=== PATIENT | female | born 1995 | race African-American/Black ===

== ENCOUNTER 2018-09-03 18:26 | Emergency (ER) | payer SELFPAY ==
[~2018-09-03] VITALS: Ht 162.6 cm; Wt 73.5 kg
[2018-09-03 18:50] VITALS: BP 108/58
--- NOTE | 2018-09-03 20:02 | NUR ---
PT RETURN FROM RAD TO LOBBY
--- NOTE | 2018-09-03 20:08 | NUR ---
PT AMBULATED TO BED 10.
--- NOTE | 2018-09-03 20:09 | NUR ---
23 Y/O FEMALE PRESNTS TO ED WITH C/O LEFT SIDE CHEST PAIN WITH COUGH X2 WEEKS. PT STATES PAIN EXACERBATED WITH COUGHING. NON-PRODUCTIVE COUGH. 7/10 CP. NO ALOC. NASUEA WITHOUT VOMITING. BILAT LUNGS CLEAR THROUGHOUT. 02SAT 100%. NO SOB/DYSPNEA. VSS. ER MD AWARE. CONTINUE TO MONITOR.
--- NOTE | 2018-09-03 20:21 | NUR ---
DR COCHRAN AT BEDSIDE.
--- NOTE | 2018-09-03 20:33 | NUR ---
PT PROVIDING URINE AT THIS TIME.
[2018-09-03 20:58] VITALS: BP 111/61
--- NOTE | 2018-09-03 20:58 | NUR ---
DISCHARGE PAPERS GIVEN TO PT. RX OF PREDNISONE AND CODEINE/PHENYLEPHRINE/PROMETHAZINE GIVEN. SIDE EFFECTS EXPLAINED. PT STATES BREATHING EASIER AND FEELING BETTER. O2SAT 100% @ RA UPON DC. LUNGS CLEAR BILAT. NO RESPIRATORY DISTRESS. NO CP. 2/10 PAIN BUT TOLLERABLE. INSTRUCTED TO F/U WITH PCP AND WHEN TO RETURN TO ER. PT VERBALLIZED UNDERSTANDING OF DC INSTRUCTOINS. ALL QUESTIONS ANSWERED.
== END 2018-09-03 20:58 | disposition home or self-care (01) ==
LOC: MED 18:26
DX: R05 Cough (principal); R07.89 Other chest pain
CPT/HCPCS: 71045; 81025; 99284